=== PATIENT | female | born 1995 | race African-American/Black ===

== ENCOUNTER 2016-10-01 08:22 | Emergency (ER) | payer OTHER ==
[~2016-10-01] VITALS: Ht 160 cm; Wt 54.4 kg
[~2016-10-01 08:22] MED LIST: METR500T PO; ONDA4TAB12 PO; SULF1TAB23 PO
[2016-10-01] MEDS ORDERED: FAMOTIDINE 20 MG TABLET. PO ONE (08:30)
[2016-10-01] MEDS ORDERED: EPINEPHrine SYRINGE 1 MG/10 ML SYRINGE IM ONE (08:30)
[2016-10-01] MEDS ORDERED: DEXAMETHASONE SOD PHOS 20 MG/5 ML VIAL. IV ONE (08:30)
[2016-10-01] MEDS ORDERED: diphenhydrAMINE 50 MG/ML VIAL IVP ONE (08:30)
[2016-10-01] MEDS ORDERED: EPINEPHrine 1 MG/ML VIAL ONE (08:49)
--- NOTE | 2016-10-01 08:52 | PHYS DOC ---
Past Medical History Past Medical History: No Pertinent History, Other Additional Past Medical Histor: POOR ETOH TOLERANCE Past Surgical History: No Surgical History Additional Information: 4 cigarettes daily Alcohol Use: Rarely Drug Use: Marijuana Adult General Chief Complaint Chief Complaint: ALLERGIC REACTION HPI HPI Patient is a 21 year old female presenting to the emergency department for evaluation of diffuse hives that started shortly after eating a banana this morning. Says that she feels short of breath and itchy all over. Patient does not have any obvious swelling to her throat or lips. She says that she has ate a banana before in the past but it has been a very long time. She is allergic to strawberries but denies eating any of those. She is in no obvious distress but looks quite uncomfortable that she has diffuse hives including her face chest back abdomen and upper extremities. Review of Systems Review of Systems Constitutional: Denies fever or chills [] Respiratory: Denies cough or shortness of breath [] Cardiovascular: No additional information not addressed in HPI [] GI: Denies abdominal pain, nausea, vomiting, bloody stools or diarrhea [] : Denies dysuria or hematuria [] Musculoskeletal: Denies back pain or joint pain [] Integument: + rash and skin lesions [] Neurologic: Denies headache, focal weakness or sensory changes [] Current Medications Current Medications Current Medications Medications (Trade) Dose Ordered Sig/Syed Start Time Stop Time Status Last Admin Dose Admin Dexamethasone Sodium Phosphate (Decadron) 10 mg 1X ONCE 10/01/16 08:30 10/01/16 08:34 DC 10/01/16 08:54 10 MG Diphenhydramine HCl (Benadryl) 50 mg 1X ONCE 10/01/16 08:30 10/01/16 08:34 DC 10/01/16 08:56 50 MG Epinephrine HCl (Adrenalin) 1 mg STK-MED ONCE 10/01/16 08:49 10/01/16 08:50 DC Epinephrine HCl (Epinephrine Syringe) 0.3 mg 1X ONCE 10/01/16 08:30 10/01/16 08:34 DC Famotidine (Pepcid) 20 mg 1X ONCE 10/01/16 08:30 10/01/16 08:34 DC 10/01/16 08:48 20 MG Allergies Allergies Allergies Coded Allergies Type Severity Reaction Last Updated Verified strawberry Allergy Intermediate throat itches 10/01/16 Yes Physical Exam Physical Exam Constitutional: Well developed, well nourished, no acute distress, non-toxic appearance. [] HENT: Normocephalic, atraumatic, bilateral external ears normal, oropharynx moist, no oral exudates, nose normal. [] Eyes: PERRLA, EOMI, conjunctiva normal, no discharge. [] Neck: Normal range of motion, no tenderness, supple, no stridor. [] Cardiovascular:Heart rate regular rhythm, no murmur [] Lungs & Thorax: Bilateral breath sounds clear to auscultation [] Abdomen: Bowel sounds normal, soft, no tenderness, no masses, no pulsatile masses. [] Skin: Diffuse hives on face chest abdomen back arms. Back: No tenderness, no CVA tenderness. [] Extremities: No tenderness, no cyanosis, no clubbing, ROM intact, no edema. [] Neurologic: Alert and oriented X 3, normal motor function, normal sensory function, no focal deficits noted. [] Current Patient Data Vital Signs Vital Signs Date Time Temp Pulse Resp B/P (MAP) Pulse Ox O2 Delivery O2 Flow Rate FiO2 10/01/16 09:36 77 20 109/76 (87) 100 Room Air 10/01/16 08:29 97.9 97.9 EKG EKG [] Radiology/Procedures Radiology/Procedures [] Course & Med Decision Making Course & Med Decision Making Patient with diffuse hives but no airway issues and her vital signs are normal except for the tachycardia due to anxiety. She was given epinephrine Decadron and Benadryl and Pepcid and her rash vastly improved and her vital signs returned to normal including her heart rate. Patient was to avoid eating bananas and she was prescribed epinephrine pens and instructed on how to use them and when to use them. She was told to follow with an rail technician and come back to the ER sooner with any worsening rash or shortness of breath or other general concerns. Patient aware and agreeable with plan for discharge and verbalized understanding of the above instructions. Dragon Disclaimer Dragon Disclaimer This electronic medical record was generated, in whole or in part, using a voice recognition dictation system. Departure Departure Impression: Primary Impression: Allergic reaction Disposition: 01 HOME, SELF-CARE Condition: GOOD Referrals: NO PCP (PCP) Patient Instructions: Food Allergy and Anaphylaxis Additional Instructions: TAKE 25-50MG OF BENADRYL EVERY 4-6 HOURS. USE THE EPINEPHRINE FOR ANAPHYLAXIS. FOLLOW WITH AN FRAME MAKER IN THE NEXT 1-2 WEEKS AND COME BACK TO THE ED SOONER WITH ANY NEW OR WORSENING RASH, DIFFICULTY BREATHING OR OTHER GENERAL CONCERNS. THANK YOU! Scripts Epinephrine (EPINEPHRINE) 0.3 Mg/0.3 Ml Auto.injct 0.3 MG IJ PRN ANAPHYLAXIS, #2 SYR Prov: RICK LONGORIA DO 10/01/16 Problem Qualifiers Primary Impression: Allergic reaction Encounter type: initial encounter Qualified Codes: T78.40XA - Allergy, unspecified, initial encounter RICK LONGORIA DO October 01, 2016 08:52
[2016-10-01] MEDS ORDERED: EPINEPHrine 1 MG/ML VIAL IM ONE (09:00)
[2016-10-01 09:36] VITALS: BP 109/76
[2016-10-01] MEDS ORDERED: EPIN0.3A8 IJ (09:51)
== END 2016-10-01 10:10 | disposition home or self-care (01) ==
LOC: ER 10:08
DX: T78.1XXA Other adverse food reactions, not elsewhere classified, initial encounter (principal); L50.9 Urticaria, unspecified; R00.0 Tachycardia, unspecified; F41.9 Anxiety disorder, unspecified; F17.210 Nicotine dependence, cigarettes, uncomplicated; F12.10 Cannabis abuse, uncomplicated; Z91.018 Allergy to other foods; X58.XXXA Exposure to other specified factors, initial encounter
CPT/HCPCS: 96372; 96374; 96375; 99284; J0171; J1100; J1200

== ENCOUNTER 2016-10-16 09:36 | Emergency (ER) | payer OTHER ==
[~2016-10-16] VITALS: Ht 160 cm; Wt 54.4 kg
[~2016-10-16 09:36] MED LIST changes: +EPIN0.3A8 IJ
[2016-10-16] MEDS ORDERED: ONDANSETRON PF 4 MG/2 ML VIAL. IV ONE (10:00)
[2016-10-16] MEDS ORDERED: KETOROLAC TROMETHAMINE 30 MG/ML INJ. IV ONE (10:00)
[2016-10-16] MEDS ORDERED: IV NORMAL SALINE 1000ML BAG 1,000 ML IV ONE (10:00)
[2016-10-16 10:22] LABS: BASO % 0 % (0-3); EOS % 1 % (0-3); HEMOGLOBIN 14.1 g/dL (12.0-15.5); LYMPH # 1.7 x10^3/uL (1.0-4.8); LYMPH % 12 % (24-48); MEAN CORPUSCULAR HEMOGLOBIN 27 pg (25-35); MEAN CORPUSCULAR HGB CONC 34 g/dL (31-37); MEAN CORPUSCULAR VOLUME 81 fL (79-100); MONO % 3 % (0-9); NEUT % 85 % (31-73); PLATELET COUNT 247 x10^3/uL (140-400); RED BLOOD COUNT 5.17 x10^6/uL (3.50-5.40); RED CELL DISTRIBUTION WIDTH 13.8 % (11.5-14.5); WHITE BLOOD COUNT 13.8 x10^3/uL (4.0-11.0)
[2016-10-16 10:39] LABS: CALCIUM 9.4 mg/dL (8.5-10.1); CREATININE 0.9 mg/dL (0.6-1.0); GFR 93.9; POTASSIUM 3.1 mmol/L (3.5-5.1)
[2016-10-16 10:40] LABS: BILIRUBIN,URINE NEGATIVE (NEG); GLUCOSE,URINE NEGATIVE (NEG); NITRITE,URINE NEGATIVE (NEG); PH,URINE 5.5; PROTEIN,URINE NEGATIVE (NEG-TRACE); UROBILINOGEN,URINE 0.2 mg/dL (0.2 mg/dL)
[2016-10-16 10:44] LABS: ALBUMIN 4.6 g/dL (3.4-5.0); ALBUMIN/GLOBULIN RATIO 1.1 (1.0-1.7); TOTAL BILIRUBIN 0.5 mg/dL (0.2-1.0); TOTAL PROTEIN 8.8 g/dL (6.4-8.2)
[2016-10-16 10:47] LABS: BARBITURATES NEG (NEG); BENZODIAZEPINES NEG (NEG); CANNABINOIDS POS (NEG); COCAINE POS (NEG); METHADONE NEG (NEG); OPIATES NEG (NEG); PHENCYCLIDINE NEG (NEG)
[2016-10-16 10:57] LABS: BACTERIA,URINE 0 /HPF (0-FEW); RBC,URINE 0 /HPF (0-2); SQUAMOUS EPITHELIAL CELL,UR MANY /LPF; WBC,URINE OCC /HPF (0-4)
[2016-10-16 11:15] VITALS: BP 110/71
[2016-10-16] MEDS ORDERED: POTASSIUM CHLORIDE 20 MEQ TABLET.ER. PO ONE (11:15)
[2016-10-16] MEDS ORDERED: PROC10TA57 PO (11:44)
[2016-10-16] MEDS ORDERED: POTA20TA82 PO (11:44)
--- NOTE | 2016-10-16 11:45 | PHYS DOC ---
Past Medical History Past Medical History: Alcoholism, Other Additional Past Medical Histor: POOR ETOH TOLERANCE Past Surgical History: No Surgical History Alcohol Use: Heavy Drug Use: Marijuana Adult General Chief Complaint Chief Complaint: ABDOMINAL PAIN HPI HPI Patient is a 21 year old female with a history of alcoholism who presents today with nausea vomiting and generalized moderate headache that began at 2 AM this morning. Patient states prior to her symptoms she has been drinking. She states she had 3 shots of hard liquor. Patient denies any diarrhea. She states she has generalized abdominal cramping. Denies this being the worst headache in her life. She is actively vomiting in the ED. Review of Systems Review of Systems Constitutional: Denies fever or chills [] Eyes: Denies change in visual acuity, redness, or eye pain [] HENT: Denies nasal congestion or sore throat [] Respiratory: Denies cough or shortness of breath [] Cardiovascular: No additional information not addressed in HPI [] GI: abdominal pain, nausea, vomiting, : Denies dysuria or hematuria [] Musculoskeletal: Denies back pain or joint pain [] Integument: Denies rash or skin lesions [] Neurologic: headache Endocrine: Denies polyuria or polydipsia [] Current Medications Current Medications Current Medications Medications (Trade) Dose Ordered Sig/Syed Start Time Stop Time Status Last Admin Dose Admin Ketorolac Tromethamine (Toradol) 30 mg 1X ONCE 10/16/16 10:00 10/16/16 10:01 DC 10/16/16 10:06 30 MG Ondansetron HCl (Zofran) 4 mg 1X ONCE 10/16/16 10:00 10/16/16 10:01 DC 10/16/16 10:06 4 MG Potassium Chloride (Klor-Con) 40 meq 1X ONCE 10/16/16 11:15 10/16/16 11:16 DC 10/16/16 11:09 40 MEQ Sodium Chloride 1,000 ml @ 1,000 mls/hr 1X ONCE 10/16/16 10:00 10/16/16 10:59 DC 10/16/16 10:07 1,000 MLS/HR Allergies Allergies Allergies Coded Allergies Type Severity Reaction Last Updated Verified strawberry Allergy Intermediate throat itches 10/01/16 Yes Physical Exam Physical Exam Constitutional: Well developed, well nourished, no acute distress, non-toxic appearance. [] HENT: Normocephalic, atraumatic, bilateral external ears normal, oropharynx moist, no oral exudates, nose normal. [] Eyes: PERRLA, EOMI, conjunctiva normal, no discharge. [] Neck: Normal range of motion, no tenderness, supple, no stridor. [] Cardiovascular:Heart rate regular rhythm, no murmur [] Lungs & Thorax: Bilateral breath sounds clear to auscultation [] Abdomen: Bowel sounds normal, soft, no tenderness, no masses, no pulsatile masses. [] Skin: Warm, dry, no erythema, no rash. [] Back: No tenderness, no CVA tenderness. [] Extremities: No tenderness, no cyanosis, no clubbing, ROM intact, no edema. [] Neurologic: Alert and oriented X 3, normal motor function, normal sensory function, no focal deficits noted. [] Psychologic: Affect normal, judgement normal, mood normal. [] Current Patient Data Vital Signs Vital Signs Date Time Temp Pulse Resp B/P (MAP) Pulse Ox O2 Delivery O2 Flow Rate FiO2 10/16/16 09:47 98.7 70 20 105/66 (79) 100 Room Air 98.7 Lab Values Laboratory Tests Test 10/16/16 08:54 10/16/16 09:40 10/16/16 10:15 POC Urine HCG, Qualitative Hcg negative (Negative) Urine Collection Type Unknown Urine Color Yellow Urine Clarity Clear Urine pH 5.5 Urine Specific [place] 1.025 Urine Protein Negative mg/dL (NEG-TRACE) Urine Glucose (UA) Negative mg/dL (NEG) Urine Ketones (Stick) >=80 mg/dL (NEG) Urine Blood Small (NEG) Urine Nitrite Negative (NEG) Urine Bilirubin Negative (NEG) Urine Urobilinogen Dipstick 0.2 mg/dL (0.2 mg/dL) Urine Leukocyte Esterase Negative (NEG) Urine RBC 0 /HPF (0-2) Urine WBC Occ /HPF (0-4) Urine Squamous Epithelial Cells Many /LPF Urine Bacteria 0 /HPF (0-FEW) Urine Mucus Slight /LPF Urine Opiates Screen Neg (NEG) Urine Methadone Screen Neg (NEG) Urine Barbiturates Neg (NEG) Urine Phencyclidine Screen Neg (NEG) Urine Amphetamine/Methamphetamine Pos (NEG) Urine Benzodiazepines Screen Neg (NEG) Urine Cocaine Screen Pos (NEG) Urine Cannabinoids Screen Pos (NEG) Urine Ethyl Alcohol Pos (NEG) White Blood Count 13.8 x10^3/uL (4.0-11.0) H Red Blood Count 5.17 x10^6/uL (3.50-5.40) Hemoglobin 14.1 g/dL (12.0-15.5) Hematocrit 42.0 % (36.0-47.0) Mean Corpuscular Volume 81 fL (79-100) Mean Corpuscular Hemoglobin 27 pg (25-35) Mean Corpuscular Hemoglobin Concent 34 g/dL (31-37) Red Cell Distribution Width 13.8 % (11.5-14.5) Platelet Count 247 x10^3/uL (140-400) Neutrophils (%) (Auto) 85 % (31-73) H Lymphocytes (%) (Auto) 12 % (24-48) L Monocytes (%) (Auto) 3 % (0-9) Eosinophils (%) (Auto) 1 % (0-3) Basophils (%) (Auto) 0 % (0-3) Neutrophils # (Auto) 11.7 x10^3uL (1.8-7.7) H Lymphocytes # (Auto) 1.7 x10^3/uL (1.0-4.8) Monocytes # (Auto) 0.3 x10^3/uL (0.0-1.1) Eosinophils # (Auto) 0.1 x10^3/uL (0.0-0.7) Basophils # (Auto) 0.0 x10^3/uL (0.0-0.2) Sodium Level 140 mmol/L (136-145) Potassium Level 3.1 mmol/L (3.5-5.1) L Chloride Level 101 mmol/L (98-107) Carbon Dioxide Level 20 mmol/L (21-32) L Anion Gap 19 (6-14) H Blood Urea Nitrogen 14 mg/dL (7-20) Creatinine 0.9 mg/dL (0.6-1.0) Estimated GFR (Cockcroft-Gault) 93.9 BUN/Creatinine Ratio 16 (6-20) Glucose Level 88 mg/dL (70-99) Calcium Level 9.4 mg/dL (8.5-10.1) Total Bilirubin 0.5 mg/dL (0.2-1.0) Aspartate Amino Transferase (AST) 27 U/L (15-37) Alanine Aminotransferase (ALT) 36 U/L (14-59) Alkaline Phosphatase 79 U/L (46-116) Total Protein 8.8 g/dL (6.4-8.2) H Albumin 4.6 g/dL (3.4-5.0) Albumin/Globulin Ratio 1.1 (1.0-1.7) Lipase 107 U/L (73-393) Ethyl Alcohol Level 58 mg/dL (0-10) H Laboratory Tests 10/16/16 10:15 Laboratory Tests 10/16/16 10:15 EKG EKG [] Radiology/Procedures Radiology/Procedures [] Course & Med Decision Making Course & Med Decision Making Pertinent Labs and Imaging studies reviewed. (See chart for details) This is a 21-year-old female patient with history of alcoholism who presents today with nausea vomiting generalized headache and generalized abdominal pain after drinking last night. CBC no acute findings, CMP with potassium of 3.1. Patient was given oral potassium drops placement in the ED. Lipase is normal, Drug screen is positive for cocaine, meth, marijuana. Alcohol level 58. Patient was given 1 L of IV fluid Toradol and Zofran. She states she is feeling better. She was discharged with education on alcoholism and drug abuse. She was encouraged to consider getting help for both. Dragon Disclaimer Dragon Disclaimer This electronic medical record was generated, in whole or in part, using a voice recognition dictation system. Departure Departure Impression: Primary Impression: Alcohol intoxication Additional Impressions: Drug abuse ETOH abuse Abdominal pain, generalized Hangover without complication Hypokalemia Disposition: 01 HOME, SELF-CARE Condition: STABLE Referrals: NO PCP (PCP) Please consider getting help at [facility] for drug abuse and alcohol abuse Patient Instructions: Alcohol Intoxication, Drug Abuse, FAQs, Hypokalemia-Brief Additional Instructions: You were seen for alcohol intoxication and drug abuse. Your Urine drug screen was positive for cocaine meth and marijuana. Alcohol level was 58. We highly recommend you get help for drug and alcohol abuse. Your potassium level was low. Increase your dietary potassium intake through foods like bananas. Get help for drugs and alcohol use Scripts Prochlorperazine Maleate (Compazine) 10 Mg Tablet 10 MG PO TID Y for NAUSEA, #10 TAB Prov: MUTUNGA,LOGAN INFORMATION MANAGEMENT SPECIALIST 10/16/16 Potassium Chloride (POTASSIUM CHLORIDE) 20 Meq Tablet.er 20 MEQ PO DAILY, #5 TAB.SR Prov: LOGAN MCMANUS APRN 10/16/16 Problem Qualifiers Primary Impression: Alcohol intoxication Complication of substance-induced condition: with unspecified complication Qualified Codes: F10.929 - Alcohol use, unspecified with intoxication, unspecified LOGAN MCMANUS APRN October 16, 2016 11:45
== END 2016-10-16 11:59 | disposition home or self-care (01) ==
LOC: ER 09:36
DX: F10.129 Alcohol abuse with intoxication, unspecified (principal); F12.10 Cannabis abuse, uncomplicated; R10.84 Generalized abdominal pain; E87.6 Hypokalemia; R51 Headache; Z91.018 Allergy to other foods
CPT/HCPCS: 36415; 80053; 80305; 80320; 81001; 81025; 83690; 85027; 96361; 96374; 96375; 99284; J1885; J2405; J7030; G0480; G0481

== ENCOUNTER 2016-11-21 20:57 | Emergency (ER) | payer OTHER ==
[~2016-11-21] VITALS: Ht 154.9 cm; Wt 54.4 kg
[~2016-11-21 20:57] MED LIST changes: +POTA20TA82 PO; +PROC10TA57 PO
--- NOTE | 2016-11-21 21:24 | PHYS DOC ---
Past Medical History Past Medical History: Alcoholism, Other Additional Past Medical Histor: POOR ETOH TOLERANCE Past Surgical History: No Surgical History Alcohol Use: Heavy Drug Use: Marijuana Adult General Chief Complaint Chief Complaint: Palpitations HPI HPI Patient is a 21 year old female who presents with chest pain & palpitations. Patient reports intermittent symptoms for months, most recently for past 2 weeks has had sharp left sided chest pain which is continuous, worse with deep breathing, associated with mild shortness of breath. She also reports she feels her heart racing at times. She denies fevers/chills, cough, nausea, vomiting, diaphoresis, lower extremity pain/swelling. She has never seen a doctor for this problem before. She drinks EtOH daily last drink this AM, occasional tobacco & marijuana, no known PMHx, no known family history of CAD or arrhythmia. Review of Systems Review of Systems Constitutional: Denies fever or chills Eyes: Denies change in visual acuity HENT: Denies nasal congestion or sore throat Respiratory: Denies cough or shortness of breath Cardiovascular: Reports chest pain and palpitations, denies edema GI: Denies abdominal pain, nausea, vomiting, bloody stools or diarrhea Musculoskeletal: Denies back pain or joint pain Integument: Denies rash or skin lesions Neurologic: Denies headache, focal weakness or sensory changes Current Medications Current Medications Current Medications Medications (Trade) Dose Ordered Sig/Syed Start Time Stop Time Status Last Admin Dose Admin Ketorolac Tromethamine (Toradol) 30 mg 1X ONCE 11/21/16 21:30 11/21/16 21:31 DC 11/21/16 21:33 30 MG Sodium Chloride 1,000 ml @ 1,000 mls/hr 1X ONCE 11/21/16 21:30 11/21/16 22:29 11/21/16 21:33 1,000 MLS/HR Allergies Allergies Allergies Coded Allergies Type Severity Reaction Last Updated Verified banana Allergy Severe Swelling, HIVES 11/21/16 Yes strawberry Allergy Intermediate throat itches 10/01/16 Yes Physical Exam Physical Exam Constitutional: Well developed, well nourished, no acute distress, non-toxic appearance. HENT: Normocephalic, atraumatic, bilateral external ears normal, oropharynx moist, nose normal. Eyes: conjunctiva normal, no discharge. Neck: supple, no stridor. Cardiovascular: RRR, no murmurs, no edema. Lungs & Thorax: LCTAB, no wheezing, no respiratory distress. Reproducible tenderness with palpation over left anterior chest wall. Abdomen: soft, nontender, nondistended. Skin: Warm, dry, no erythema, no rash. Back: No tenderness. Extremities: No tenderness, no edema. No calf tenderness or swelling Neurologic: Alert and oriented X 3, no focal deficits noted. Psychologic: Affect normal, judgement normal, mood normal. Current Patient Data Vital Signs Vital Signs Date Time Temp Pulse Resp B/P (MAP) Pulse Ox O2 Delivery O2 Flow Rate FiO2 11/21/16 21:22 98.3 84 18 119/57 (77) 100 Room Air 98.3 Lab Values Laboratory Tests Test 11/21/16 21:15 11/21/16 21:19 11/21/16 22:08 POC Urine HCG, Qualitative Hcg negative (Negative) White Blood Count 9.4 x10^3/uL (4.0-11.0) Red Blood Count 4.77 x10^6/uL (3.50-5.40) Hemoglobin 13.0 g/dL (12.0-15.5) Hematocrit 40.2 % (36.0-47.0) Mean Corpuscular Volume 84 fL (79-100) Mean Corpuscular Hemoglobin 27 pg (25-35) Mean Corpuscular Hemoglobin Concent 32 g/dL (31-37) Red Cell Distribution Width 14.3 % (11.5-14.5) Platelet Count 254 x10^3/uL (140-400) Neutrophils (%) (Auto) 46 % (31-73) Lymphocytes (%) (Auto) 43 % (24-48) Monocytes (%) (Auto) 5 % (0-9) Eosinophils (%) (Auto) 5 % (0-3) H Basophils (%) (Auto) 1 % (0-3) Neutrophils # (Auto) 4.3 x10^3uL (1.8-7.7) Lymphocytes # (Auto) 4.0 x10^3/uL (1.0-4.8) Monocytes # (Auto) 0.5 x10^3/uL (0.0-1.1) Eosinophils # (Auto) 0.4 x10^3/uL (0.0-0.7) Basophils # (Auto) 0.1 x10^3/uL (0.0-0.2) Sodium Level 141 mmol/L (136-145) Potassium Level 3.1 mmol/L (3.5-5.1) L Chloride Level 105 mmol/L (98-107) Carbon Dioxide Level 28 mmol/L (21-32) Anion Gap 8 (6-14) Blood Urea Nitrogen 11 mg/dL (7-20) Creatinine 0.8 mg/dL (0.6-1.0) Estimated GFR (Cockcroft-Gault) 107.6 BUN/Creatinine Ratio 14 (6-20) Glucose Level 84 mg/dL (70-99) Calcium Level 8.9 mg/dL (8.5-10.1) Total Bilirubin 0.4 mg/dL (0.2-1.0) Aspartate Amino Transferase (AST) 20 U/L (15-37) Alanine Aminotransferase (ALT) 29 U/L (14-59) Alkaline Phosphatase 62 U/L (46-116) Troponin I Quantitative < 0.017 ng/mL (0.000-0.055) Total Protein 7.2 g/dL (6.4-8.2) Albumin 3.8 g/dL (3.4-5.0) Albumin/Globulin Ratio 1.1 (1.0-1.7) Thyroid Stimulating Hormone (TSH) 1.432 uIU/mL (0.358-3.74) Ethyl Alcohol Level < 10 mg/dL (0-10) Urine Test Negative (NEG) Urine Opiates Screen Neg (NEG) Urine Methadone Screen Neg (NEG) Urine Barbiturates Neg (NEG) Urine Phencyclidine Screen Neg (NEG) Urine Amphetamine/Methamphetamine Pos (NEG) Urine Benzodiazepines Screen Neg (NEG) Urine Cocaine Screen Neg (NEG) Urine Cannabinoids Screen Pos (NEG) Urine Ethyl Alcohol Neg (NEG) Laboratory Tests 11/21/16 21:19 Laboratory Tests 11/21/16 21:19 EKG EKG Interpreted by me: Normal sinus rhythm rate 68, no acute ST or T wave changes, normal intervals, no ectopy. [] Radiology/Procedures Radiology/Procedures patient declined CXR[] Course & Med Decision Making Course & Med Decision Making Pertinent Labs and Imaging studies reviewed. (See chart for details) Patient presents with chest pain & palpitations. Ordered labs, EKG, CXR. EKG unremarkable as above, no arrhythmia or tachycardia/bradycardia on telemetry. She requested to leave before workup was complete because her ride needed to leave. Discussed risks of leaving including worsening condition, undiagnosed condition, possibly . She is A&Ox3 & chooses to leave against medical advice. Recommend follow up with PCP at her earliest convenience, consider seeking help for EtOH detox. [] Dragon Disclaimer Dragon Disclaimer This electronic medical record was generated, in whole or in part, using a voice recognition dictation system. Departure Departure Impression: Primary Impression: Chest pain Additional Impression: Palpitations Disposition: 07 AGAINST MEDICAL ADVICE Condition: STABLE Referrals: NO PCP (PCP) Problem Qualifiers ASHLI PARSON MD Nov 21, 2016 21:24
[2016-11-21 21:27] LABS: BASO # 0.1 x10^3/uL (0.0-0.2); BASO % 1 % (0-3); EOS % 5 % (0-3); HEMATOCRIT 40.2 % (36.0-47.0); LYMPH % 43 % (24-48); MEAN CORPUSCULAR HEMOGLOBIN 27 pg (25-35); MEAN CORPUSCULAR HGB CONC 32 g/dL (31-37); MEAN CORPUSCULAR VOLUME 84 fL (79-100); MONO % 5 % (0-9); NEUT % 46 % (31-73); PLATELET COUNT 254 x10^3/uL (140-400); RED BLOOD COUNT 4.77 x10^6/uL (3.50-5.40); RED CELL DISTRIBUTION WIDTH 14.3 % (11.5-14.5); WHITE BLOOD COUNT 9.4 x10^3/uL (4.0-11.0)
[2016-11-21] MEDS ORDERED: KETOROLAC TROMETHAMINE 30 MG/ML INJ. IV ONE (21:30)
[2016-11-21] MEDS ORDERED: IV NORMAL SALINE 1000ML BAG 1,000 ML IV ONE (21:30)
[2016-11-21 21:40] LABS: CALCIUM 8.9 mg/dL (8.5-10.1); CREATININE 0.8 mg/dL (0.6-1.0); GFR 107.6; POTASSIUM 3.1 mmol/L (3.5-5.1)
[2016-11-21 21:47] LABS: ALBUMIN 3.8 g/dL (3.4-5.0); ALBUMIN/GLOBULIN RATIO 1.1 (1.0-1.7); TOTAL BILIRUBIN 0.4 mg/dL (0.2-1.0); TOTAL PROTEIN 7.2 g/dL (6.4-8.2)
[2016-11-21 22:09] VITALS: BP 117/67
[2016-11-21 22:20] LABS: NEG OBC UR NEG; POS OBC UR POS
[2016-11-21 22:23] LABS: BARBITURATES NEG (NEG); BENZODIAZEPINES NEG (NEG); CANNABINOIDS POS (NEG); COCAINE NEG (NEG); METHADONE NEG (NEG); OPIATES NEG (NEG); PHENCYCLIDINE NEG (NEG)
--- NOTE | 2016-11-22 06:47 | EKG ---
[facility] [address] [place] [address] Test Date: 2016-11-21 Test Time: 21:11:02 Pat Name: CHRISSY QUINTANILLA Department: Room: Gender: F Sterile Supervisor: : 1995 Requested By: ASHLI PARSNO Order Number: [id number] Reading MD: Measurements Intervals [place] Rate: 68 P: 26 NE: 212 QRS: -23 QRSD: 76 T: 6 QT: 378 QTc: 402 Interpretive Statements SINUS RHYTHM LEFTWARD AXIS OTHERWISE NORMAL ECG RI6.01 No previous ECG available for comparison
== END 2016-11-21 22:25 | disposition left against medical advice (07) ==
LOC: ER 20:57
DX: R00.2 Palpitations (principal); R07.9 Chest pain, unspecified; R06.02 Shortness of breath; F12.10 Cannabis abuse, uncomplicated; Z91.018 Allergy to other foods
CPT/HCPCS: 36415; 80053; 80305; 80320; 81025; 84443; 84484; 85027; 93005; 96361; 96374; 99285; J1885; J7030; G0480; G0481

== ENCOUNTER 2017-12-15 11:17 | Emergency (ER) | payer SELFPAY, OTHER ==
[2017-12-15 11:37] LABS: URINE HCG POC HCG NEGATIVE (Negative)
[2017-12-15 11:52] LABS: ADD MAN DIFF? NO
[2017-12-15 11:56] LABS: BASO # 0.1 x10^3/uL (0.0-0.2); BASO % 1 % (0-3); EOS # 0.3 x10^3/uL (0.0-0.7); EOS % 3 % (0-3); HEMATOCRIT 39.3 % (36.0-47.0); HEMOGLOBIN 13.3 g/dL (12.0-15.5); LYMPH # 2.7 x10^3/uL (1.0-4.8); LYMPH % 35 % (24-48); MEAN CORPUSCULAR HEMOGLOBIN 28 pg (25-35); MEAN CORPUSCULAR HGB CONC 34 g/dL (31-37); MEAN CORPUSCULAR VOLUME 83 fL (79-100); MONO # 0.5 x10^3/uL (0.0-1.1); MONO % 6 % (0-9); NEUT # 4.2 x10^3uL (1.8-7.7); NEUT % 55 % (31-73); PLATELET COUNT 298 x10^3/uL (140-400); RED BLOOD COUNT 4.77 x10^6/uL (3.50-5.40); RED CELL DISTRIBUTION WIDTH 14.5 % (11.5-14.5); WHITE BLOOD COUNT 7.8 x10^3/uL (4.0-11.0)
[2017-12-15 12:04] LABS: ANION GAP 7 (6-14); BLOOD UREA NITROGEN 11 mg/dL (7-20); BUN/CREATININE RATIO 14 (6-20); CARBON DIOXIDE 26 mmol/L (21-32); CHLORIDE 104 mmol/L (98-107); CREATININE 0.8 mg/dL (0.6-1.0); GFR 106.6; GLUCOSE 98 mg/dL (70-99); POTASSIUM 3.7 mmol/L (3.5-5.1); SODIUM 137 mmol/L (136-145)
[2017-12-15 12:11] LABS: ALBUMIN/GLOBULIN RATIO 1.1 (1.0-1.7); ALK PHOS 65 U/L (46-116); ALT (SGPT) 46 U/L (14-59); AST (SGOT) 30 U/L (15-37); TOTAL BILIRUBIN 0.4 mg/dL (0.2-1.0); TOTAL PROTEIN 7.7 g/dL (6.4-8.2)
[2017-12-15 12:12] LABS: TROPONINI < 0.017 ng/mL (0.000-0.055)
[2017-12-15] MEDS ORDERED: CONTRAST GIVEN. MC (12:15)
[2017-12-15] MEDS: IOHEXOL 300 MG/ML 100ML VIAL. IV (12:17)
[2017-12-15 12:18] LABS: D-DIMER < 0.27 ug/mlFEU (0.00-0.50)
[2017-12-15] MEDS: KETOROLAC 30 MG/ML INJ. IV (13:33)
[2017-12-15] MEDS: traMADol 50 MG TABLET PO (14:28)
== END 2017-12-15 14:35 | disposition home or self-care (01) ==
LOC: ER 11:17
DX: R07.89 Other chest pain (principal); R06.00 Dyspnea, unspecified; E04.9 Nontoxic goiter, unspecified; Z91.018 Allergy to other foods
CPT/HCPCS: 36415; 71275; 80053; 81025; 84484; 84702; 85025; 85379; 93005; 96374; 99285-25; J1885; Q9967

== ENCOUNTER 2018-01-11 18:18 | Emergency (ER) | payer OTHER ==
[~2018-01-11] VITALS: Ht 162.6 cm; Wt 54.4 kg
[~2018-01-11 18:18] MED LIST changes: +TRAM50TA PO
[2018-01-11 18:36] VITALS: BP 104/56
[2018-01-11] MEDS ORDERED: ORPHENADRINE CITRATE 60 MG/2 ML VIAL. IM ONE (19:30)
[2018-01-11] MEDS ORDERED: KETOROLAC 30 MG/ML VIAL. IM ONE (19:30)
[2018-01-11] MEDS ORDERED: NAPR-514 PO (20:15)
[2018-01-11] MEDS ORDERED: CYCL10TA2 PO (20:15)
--- NOTE | 2018-01-11 20:16 | PHYS DOC ---
Past Medical History Past Medical History: Alcoholism, Other Additional Past Medical Histor: BLOOD CLOTS Past Surgical History: Other Additional Past Surgical Histo: PLASTIC SX TO FACE Alcohol Use: Heavy Additional Information: HAD A SHOT OF LIQUIOR TODAY Drug Use: Marijuana Adult General Chief Complaint Chief Complaint: LOWER BACK PAIN OR INJURY HPI HPI Patient is a 22 year old -[place] female who presents to emergency Department today with complaints of low back pain after wrestling around with her fianc this evening. She denies any weakness, numbness, tingling, or loss of sensation in the lower extremities. She states that the pain does not travel to her buttocks or down her legs. Currently she rates pain as a 10 out of 10 on the pain scale. She reports that she had a PE 2 months ago and is currently taking Eliquis for treatment of that condition, she denies any shortness of breath or chest pain. She denies any surgical history. Review of Systems Review of Systems Constitutional: Denies fever or chills [] Musculoskeletal: Denies joint pain; reports low back pain- denies any saddle anesthesia, or loss of bowel or bladder control. [] Integument: Denies rash or skin lesions [] Neurologic: Denies headache, focal weakness or sensory changes [] All other systems were reviewed and found to be within normal limits, except as documented in this note. Current Medications Current Medications Current Medications Medications (Trade) Dose Ordered Sig/Syed Start Time Stop Time Status Last Admin Dose Admin Ketorolac Tromethamine (Toradol 30mg Vial) 30 mg 1X ONCE 01/11/18 19:30 01/11/18 19:31 DC 01/11/18 19:31 30 MG Orphenadrine Citrate (Norflex) 60 mg 1X ONCE 01/11/18 19:30 01/11/18 19:31 DC 01/11/18 19:30 60 MG Allergies Allergies Allergies Coded Allergies Type Severity Reaction Last Updated Verified banana Allergy Severe Swelling, HIVES 11/21/16 Yes strawberry Allergy Intermediate throat itches 10/01/16 Yes Physical Exam Physical Exam Constitutional: Well developed, well nourished, no acute distress, non-toxic appearance. [] HENT: Normocephalic, atraumatic, bilateral external ears normal, nose normal. [ ] Eyes: PERRLA, conjunctiva normal, no discharge. [] Neck: Normal range of motion, no tenderness, supple, no stridor. [] Skin: Warm, dry, no erythema, no rash. [] Back: No tenderness, no CVA tenderness. [] Extremities: No tenderness, no cyanosis, no clubbing, ROM intact, no edema. [] Neurologic: Alert and oriented X 3, normal motor function, normal sensory function, no focal deficits noted. [] Psychologic: Affect normal, judgement normal, mood normal. [] Current Patient Data Vital Signs Vital Signs Date Time Temp Pulse Resp B/P (MAP) Pulse Ox O2 Delivery O2 Flow Rate FiO2 01/11/18 18:36 98.3 64 18 104/56 (72) 98 Room Air 98.3 EKG EKG [] Radiology/Procedures Radiology/Procedures [] Course & Med Decision Making Course & Med Decision Making Pertinent Labs and Imaging studies reviewed. (See chart for details) Patient is a 22-year-old female who presented to the emergency room with complaints of right low back pain after wrestling around with her boyfriend. Vital signs are stable. Patient was given a 60 mg shot of orphenadrine, and 30 mg shot of Toradol, reported some relief of pain with these medications. Patient will be prescribed Flexeril and naproxen for home use.Patient verbalized an understanding of home care, medications, follow-up, and return to ED instructions and was in agreement with the plan of care. [] Dragon Disclaimer Dragon Disclaimer This electronic medical record was generated, in whole or in part, using a voice recognition dictation system. Departure Departure Impression: Primary Impression: Right lumbar pain Disposition: HOME, SELF-CARE Condition: STABLE Referrals: NO PCP (PCP) Patient Instructions: Lumbosacral Strain Additional Instructions: Fill prescriptions and use as directed. activity as tolerated. follow up with your doctor in 1-2 days. Return to the ER if your symptoms worsen. Scripts Cyclobenzaprine Hcl (CYCLOBENZAPRINE HCL) 10 Mg Tablet 10 MG PO TID for 7 Days, #21 TAB 0 Refills Prov: ARELY RAMIREZ APRN 01/11/18 Naproxen (NAPROXEN) 500 Mg Tablet 1 TAB PO BID for 10 Days, #20 TAB 0 Refills Prov: ARELY RAMIREZ APRN 01/11/18 Problem Qualifiers Primary Impression: Right lumbar pain Chronicity: acute Sciatica presence: without sciatica Qualified Codes: M54.5 - Low back pain ARELY RAMIREZ FUND MANAGER Jan 11, 2018 20:16
== END 2018-01-11 20:27 | disposition home or self-care (01) ==
LOC: ER 18:18
DX: M54.5 Low back pain (principal); F10.20 Alcohol dependence, uncomplicated; Y90.9 Presence of alcohol in blood, level not specified; Z91.018 Allergy to other foods
CPT/HCPCS: 96372; 99284; J1885; J2360

== ENCOUNTER 2018-02-20 11:11 | Emergency (ER) | payer OTHER ==
[~2018-02-20] VITALS: Ht 162.6 cm; Wt 54.4 kg
[~2018-02-20 11:11] MED LIST changes: +CYCL10TA2 PO; +NAPR-514 PO
[2018-02-20 11:18] VITALS: BP 104/64
[2018-02-20 12:27] LABS: BILIRUBIN,URINE NEGATIVE (NEG); CLARITY,URINE CLEAR; COLOR,URINE YELLOW; NITRITE,URINE NEGATIVE (NEG); PH,URINE 6.5; PROTEIN,URINE NEGATIVE (NEG-TRACE)
[2018-02-20 12:47] LABS: SQUAMOUS EPITHELIAL CELL,UR FEW /LPF
[2018-02-20 12:48] LABS: RBC,URINE OCC /HPF (0-2)
[2018-02-20 12:49] LABS: BACTERIA,URINE FEW /HPF (0-FEW)
--- NOTE | 2018-02-20 14:24 | RAD ---
Obstetrical ultrasound, 02/20/2018: HISTORY: Pain, Transabdominal scans were obtained. The uterus is anteverted. It contains a single gestational sac. The gestational sac contains a pole measuring 3 mm. This suggests a gestational age of 5 weeks and 6 days yielding a sonographic EDC of 10/17/2018. cardiac activity is present with a heart rate of 114 bpm. No subchorionic hemorrhage is evident. The ovaries are of normal size. The left ovary contains a 2.2 cm cyst, probably a corpus luteum cyst. Blood flow is present in both ovaries. No adnexal mass is seen. No free fluid is evident in the pelvis. IMPRESSION: 1. Single viable intrauterine fetus of approximately 6 weeks gestational age. 2. Small left corpus luteum cyst. Electronically signed by: Fabiano Guzman MD (02/20/2018 2:20 PM) [facility]
[2018-02-20] MEDS ORDERED: CEPH500T PO (14:43)
--- NOTE | 2018-02-20 14:44 | PHYS DOC ---
Past Medical History Past Medical History: Alcoholism, Other Additional Past Medical Histor: PE, Gastritis r/t ETOH Past Surgical History: Other Additional Past Surgical Histo: PLASTIC SX TO FACE Alcohol Use: Heavy Drug Use: Marijuana Adult General Chief Complaint Chief Complaint: ABDOMINAL PAIN HPI HPI Patient is a 23 year old AA female presents to the ER with complaints of lower abdominal pain for the last 3 days. She denies any nausea, vomiting, or diarrhea in the last 24 hours. Reports drinking a large amount of alcohol last weekend and on [birth year] for her birthday. She is unsure of when her LMP was, states she thinks it was on 12/23/17. Currently she rates the discomfort as a 5 out of 10 on the pain scale. She denies any dysuria, increased urinary frequency, back pain, vaginal discharge, vaginal bleeding, or vaginal itching. Review of Systems Review of Systems Constitutional: Denies fever or chills [] HENT: Denies nasal congestion or sore throat [] Respiratory: Denies cough or shortness of breath [] Cardiovascular: No additional information not addressed in HPI [] GI: Denies abdominal pain, nausea, vomiting, bloody stools or diarrhea [] : Denies irregular vaginal discharge, vaginal bleeding, increased urinary frequency, dysuria or hematuria [] Musculoskeletal: Denies back pain or joint pain [] Integument: Denies rash or skin lesions [] Neurologic: Denies headache, focal weakness or sensory changes [] All other systems were reviewed and found to be within normal limits, except as documented in this note. Allergies Allergies Allergies Coded Allergies Type Severity Reaction Last Updated Verified banana Allergy Severe Swelling, HIVES 11/21/16 Yes strawberry Allergy Intermediate throat itches 10/01/16 Yes Physical Exam Physical Exam Constitutional: Well developed, well nourished, no acute distress, non-toxic appearance. [] HENT: Normocephalic, atraumatic, bilateral external ears normal, oropharynx moist, no oral exudates, nose normal. [] Eyes: PERRLA, conjunctiva normal, no discharge. [] Neck: Normal range of motion, no tenderness, supple, no stridor. [] Cardiovascular:Heart rate regular rhythm, no murmur [] Lungs & Thorax: Bilateral breath sounds clear to auscultation [] Abdomen: Bowel sounds normal, soft, no tenderness, no masses, no pulsatile masses. [] Skin: Warm, dry, no erythema, no rash. [] Back: no CVA tenderness. [] Extremities: No cyanosis, no clubbing, ROM intact, no edema. [] Neurologic: Alert and oriented X 3, normal motor function, normal sensory function, no focal deficits noted. [] Psychologic: Affect normal, judgement normal, mood normal. [] Current Patient Data Vital Signs Vital Signs Date Time Temp Pulse Resp B/P (MAP) Pulse Ox O2 Delivery O2 Flow Rate FiO2 02/20/18 11:18 98.3 65 16 104/64 (77) 100 Room Air 98.3 Lab Values Laboratory Tests Test 02/20/18 11:20 02/20/18 11:29 02/20/18 11:30 Urine Collection Type Unknown Urine Color Yellow Urine Clarity Clear Urine pH 6.5 Urine Specific [place] 1.025 Urine Protein Negative mg/dL (NEG-TRACE) Urine Glucose (UA) Negative mg/dL (NEG) Urine Ketones (Stick) >=80 mg/dL (NEG) Urine Blood Negative (NEG) Urine Nitrite Negative (NEG) Urine Bilirubin Negative (NEG) Urine Urobilinogen Dipstick 1.0 mg/dL (0.2 mg/dL) Urine Leukocyte Esterase Moderate (NEG) Urine RBC Occ /HPF (0-2) Urine WBC 5-10 /HPF (0-4) Urine Squamous Epithelial Cells Few /LPF Urine Bacteria Few /HPF (0-FEW) Urine Mucus Slight /LPF POC Urine HCG, Qualitative Hcg positive (Negative) Maternal Serum HCG Beta Subunit 13110 mIU/mL (0-5) H Microbiology 02/20/18 Urine Culture - Final, Complete 02/20/18 Urine Culture Result 1 (BRETT) - Final, Complete EKG EKG [] Radiology/Procedures Radiology/Procedures [] Course & Med Decision Making Course & Med Decision Making Pertinent Labs and Imaging studies reviewed. (See chart for details) Dx: UTI, Pt was informed of positive and urinary tract infection. Prescription for keflex was written, increase fluids, follow up with PCP or OBGyn. Patient verbalized an understanding of home care, medications, follow-up, and return to ED instructions and was in agreement with the plan of care. [] Dragon Disclaimer Dragon Disclaimer This electronic medical record was generated, in whole or in part, using a voice recognition dictation system. Departure Departure Impression: Primary Impression: Urinary tract infection affecting care of mother in first trimester, antepartum Additional Impression: Disposition: 01 HOME, SELF-CARE Condition: STABLE Referrals: NO PCP (PCP) Patient Instructions: - First Trimester, [id number], Urinary Tract Infection, [id number] Additional Instructions: Fill prescription and use as directed. Increase clear fluids. Follow up with primary care doctor next week Return to the ER if your symptoms worsen. Scripts Cephalexin (CEPHALEXIN) 500 Mg Tablet 1 TAB PO QID, #40 TAB Prov: ARELY RAMIREZ APRN 02/20/18 Problem Qualifiers Additional Impression: Weeks of gestation: less than 8 weeks Qualified Codes: Z3A.01 - Less than 8 weeks gestation of ARELY RAMIREZ APRN Feb 20, 2018 14:44
== END 2018-02-20 14:21 | disposition left against medical advice (07) ==
LOC: ER 11:11
DX: O23.41 Unspecified infection of urinary tract in pregnancy, first trimester (principal); O99.311 Alcohol use complicating pregnancy, first trimester; Y90.9 Presence of alcohol in blood, level not specified; Z91.018 Allergy to other foods; Z3A.08 8 weeks gestation of pregnancy
CPT/HCPCS: 36415; 76801; 81001; 81025; 84702; 87086; 99285-25

== ENCOUNTER 2018-05-08 05:32 | Emergency (ER) | payer OTHER ==
[~2018-05-08] VITALS: Ht 162.6 cm; Wt 57.2 kg
[~2018-05-08 05:32] MED LIST changes: +CEPH500T PO
--- NOTE | 2018-05-08 06:33 | PHYS DOC ---
Past Medical History Past Medical History: Alcoholism, Other Additional Past Medical Histor: PE, Gastritis r/t ETOH Past Surgical History: Other Additional Past Surgical Histo: PLASTIC SX TO FACE Alcohol Use: Heavy Drug Use: Marijuana Adult General Chief Complaint Chief Complaint: VAGINAL BLEEDING HPI HPI Is a 23-year-old female who presents with complaint of pelvic pain and vaginal bleeding that started this morning. Patient states that when she got up this morning she saw blood that she feels was enough to fill a pad. She indicates that she is approximately 16 weeks . She denies any nausea or vomiting. She also denies any back pain. She reports the pain in her pelvis is moderate proximal this cramping. Review of Systems Review of Systems Constitutional: Denies fever or chills [] Respiratory: Denies cough or shortness of breath [] Cardiovascular: No additional information not addressed in HPI [] GI: Complains of lower abdominal/pelvic pain without vomiting or diarrhea [] : Positive vaginal bleeding[] Musculoskeletal: Denies back pain or joint pain [] All other systems were reviewed and found to be within normal limits, except as documented in this note. Current Medications Current Medications Current Medications Medications (Trade) Dose Ordered Sig/Syed Start Time Stop Time Status Last Admin Dose Admin Lorazepam (Ativan) 2 mg STK-MED ONCE 05/08/18 05:44 05/08/18 05:45 DC Allergies Allergies Allergies Coded Allergies Type Severity Reaction Last Updated Verified banana Allergy Severe Swelling, HIVES 11/21/16 Yes strawberry Allergy Intermediate throat itches 10/01/16 Yes Physical Exam Physical Exam Constitutional: Well developed, well nourished, no acute distress, non-toxic appearance. [] HENT: Normocephalic, atraumatic, bilateral external ears normal, oropharynx moist, no oral exudates, nose normal. [] Eyes: PERRLA, EOMI, conjunctiva normal, no discharge. [] Neck: Normal range of motion, no tenderness, supple, no stridor. [] Cardiovascular: Regular rate and rhythm, no murmur [] Lungs & Thorax: Bilateral breath sounds clear to auscultation [] Abdomen: Bowel sounds normal, gravid, soft, with lower abdominal tenderness. [] Skin: Warm, dry, no erythema, no rash. [] Extremities: No tenderness, no cyanosis, no clubbing, ROM intact, no edema. [] Neurologic: Alert and oriented X 3, normal motor function, normal sensory function, no focal deficits noted. [] Current Patient Data Vital Signs Vital Signs Date Time Temp Pulse Resp B/P (MAP) Pulse Ox O2 Delivery O2 Flow Rate FiO2 05/08/18 05:35 98.4 74 16 101/53 (69) 100 Room Air 98.4 Lab Values Laboratory Tests Test 05/08/18 05:53 05/08/18 05:55 White Blood Count 8.0 x10^3/uL (4.0-11.0) Red Blood Count 3.86 x10^6/uL (3.50-5.40) Hemoglobin 10.9 g/dL (12.0-15.5) L Hematocrit 31.5 % (36.0-47.0) L Mean Corpuscular Volume 82 fL (79-100) Mean Corpuscular Hemoglobin 28 pg (25-35) Mean Corpuscular Hemoglobin Concent 35 g/dL (31-37) Red Cell Distribution Width 13.7 % (11.5-14.5) Platelet Count 227 x10^3/uL (140-400) Neutrophils (%) (Auto) 53 % (31-73) Lymphocytes (%) (Auto) 38 % (24-48) Monocytes (%) (Auto) 5 % (0-9) Eosinophils (%) (Auto) 4 % (0-3) H Basophils (%) (Auto) 0 % (0-3) Neutrophils # (Auto) 4.2 x10^3uL (1.8-7.7) Lymphocytes # (Auto) 3.1 x10^3/uL (1.0-4.8) Monocytes # (Auto) 0.4 x10^3/uL (0.0-1.1) Eosinophils # (Auto) 0.3 x10^3/uL (0.0-0.7) Basophils # (Auto) 0.0 x10^3/uL (0.0-0.2) Maternal Serum HCG Beta Subunit 62049 mIU/mL (0-5) H Sodium Level 138 mmol/L (136-145) Potassium Level 3.6 mmol/L (3.5-5.1) Chloride Level 103 mmol/L (98-107) Carbon Dioxide Level 23 mmol/L (21-32) Anion Gap 12 (6-14) Blood Urea Nitrogen 11 mg/dL (7-20) Creatinine 0.5 mg/dL (0.6-1.0) L Estimated GFR (Cockcroft-Gault) 181.9 BUN/Creatinine Ratio 22 (6-20) H Glucose Level 78 mg/dL (70-99) Calcium Level 8.7 mg/dL (8.5-10.1) Total Bilirubin 0.2 mg/dL (0.2-1.0) Aspartate Amino Transferase (AST) 17 U/L (15-37) Alanine Aminotransferase (ALT) 26 U/L (14-59) Alkaline Phosphatase 34 U/L (46-116) L Total Protein 6.5 g/dL (6.4-8.2) Albumin 3.1 g/dL (3.4-5.0) L Albumin/Globulin Ratio 0.9 (1.0-1.7) L Urine Collection Type Unknown Urine Color Yellow Urine Clarity Clear Urine pH 6.5 Urine Specific [place] 1.025 Urine Protein Negative mg/dL (NEG-TRACE) Urine Glucose (UA) Negative mg/dL (NEG) Urine Ketones (Stick) Negative mg/dL (NEG) Urine Blood Negative (NEG) Urine Nitrite Negative (NEG) Urine Bilirubin Negative (NEG) Urine Urobilinogen Dipstick 0.2 mg/dL (0.2 mg/dL) Urine Leukocyte Esterase Negative (NEG) Urine RBC 0 /HPF (0-2) Urine WBC Occ /HPF (0-4) Urine Squamous Epithelial Cells Mod /LPF Urine Bacteria Few /HPF (0-FEW) Urine Mucus Mod /LPF Laboratory Tests 05/08/18 05:53 Laboratory Tests 05/08/18 05:53 EKG EKG [] Radiology/Procedures Radiology/Procedures [] Impressions: Ultrasound of pelvis demonstrates a single live intrauterine with positive heart tones of 144. Estimated gestational age 17 weeks 4 days. Course & Med Decision Making Course & Med Decision Making Pertinent Labs and Imaging studies reviewed. (See chart for details) [] Dragon Disclaimer Dragon Disclaimer This electronic medical record was generated, in whole or in part, using a voice recognition dictation system. Departure Departure Impression: Primary Impression: Additional Impression: Vaginal bleeding during Disposition: HOME, SELF-CARE Condition: STABLE Referrals: NO PCP (PCP) Patient Instructions: , Vaginal Bleeding During , Second Trimester Additional Instructions: Call to schedule follow-up appointment with your [employer] G[employer] K[employer]PER in the next 2-3 days. Problem Qualifiers Primary Impression: Weeks of gestation: 17 weeks Qualified Codes: Z3A.17 - 17 weeks gestation of MARSHALL CHRISTY Jr. DO May 08, 2018 06:33
[2018-05-08 07:38] LABS: BASO % 0 % (0-3); EOS # 0.3 x10^3/uL (0.0-0.7); EOS % 4 % (0-3); HEMATOCRIT 31.5 % (36.0-47.0); HEMOGLOBIN 10.9 g/dL (12.0-15.5); LYMPH # 3.1 x10^3/uL (1.0-4.8); LYMPH % 38 % (24-48); MEAN CORPUSCULAR HEMOGLOBIN 28 pg (25-35); MEAN CORPUSCULAR HGB CONC 35 g/dL (31-37); MEAN CORPUSCULAR VOLUME 82 fL (79-100); MONO # 0.4 x10^3/uL (0.0-1.1); MONO % 5 % (0-9); NEUT # 4.2 x10^3uL (1.8-7.7); NEUT % 53 % (31-73); PLATELET COUNT 227 x10^3/uL (140-400); RED BLOOD COUNT 3.86 x10^6/uL (3.50-5.40); RED CELL DISTRIBUTION WIDTH 13.7 % (11.5-14.5)
[2018-05-08 07:50] LABS: CALCIUM 8.7 mg/dL (8.5-10.1); CREATININE 0.5 mg/dL (0.6-1.0); GFR 181.9; POTASSIUM 3.6 mmol/L (3.5-5.1)
[2018-05-08 07:52] LABS: BILIRUBIN,URINE NEGATIVE (NEG); CLARITY,URINE CLEAR; COLOR,URINE YELLOW; NITRITE,URINE NEGATIVE (NEG); PH,URINE 6.5; PROTEIN,URINE NEGATIVE (NEG-TRACE); UROBILINOGEN,URINE 0.2 mg/dL (0.2 mg/dL)
[2018-05-08 07:56] LABS: ALBUMIN 3.1 g/dL (3.4-5.0); ALBUMIN/GLOBULIN RATIO 0.9 (1.0-1.7); TOTAL BILIRUBIN 0.2 mg/dL (0.2-1.0); TOTAL PROTEIN 6.5 g/dL (6.4-8.2)
[2018-05-08 08:01] LABS: SQUAMOUS EPITHELIAL CELL,UR MOD /LPF; WBC,URINE OCC /HPF (0-4)
[2018-05-08 08:02] LABS: BACTERIA,URINE FEW /HPF (0-FEW)
[2018-05-08 08:03] LABS: RBC,URINE 0 /HPF (0-2)
[2018-05-08 08:35] VITALS: BP 104/53
--- NOTE | 2018-05-08 09:09 | RAD ---
Examination: Obstetric ultrasound greater than 14 weeks HISTORY: History of vaginal bleeding COMPARISON: 02/20/2018. FINDINGS: The cervix measures 4.2 cm in length. Single living intrauterine identified with heart rate of 144 bpm. LMP measures 01/02/2018. Clinical age 18 weeks and 0 days with expected date of delivery 10/09/2018. Ultrasound age is 17 weeks and 4 days with expected date of delivery by ultrasound 10/12/2018. Estimated weight 193 g. Cephalic index 82.5. Head circumference to abdominal circumference ratio 1.2. Femur length to biparietal diameter 62.7. Femur length to head circumference 16.8. Femur length to abdominal circumference 20.4. The biparietal diameter measures 3.8 cm corresponding to 17 weeks and 5 days. Head circumference measures 14.3 cm corresponding to 17 weeks and 4 days. The abdominal circumference measures 11.8 cm corresponding to 17 weeks and 4 days. Femur length measures 2.4 cm corresponding to 17 weeks and 2 days. Head circumference to abdominal circumference ratio 1.2. movement, cardiac activity, 4 chamber heart seen. 3 vessel CORD seen. Cord insertion, fluid in the bladder, stomach, kidneys, spine, brain are visualized. position is variable. Amniotic fluid is normal. Placental location is posterior wall. IMPRESSION: Single living intrauterine with heart rate of 144 bpm. Electronically signed by: Mitchell Palencia MD (05/08/2018 9:05 AM) [id number]
== END 2018-05-08 08:55 | disposition home or self-care (01) ==
LOC: ER 05:32
DX: O46.92 Antepartum hemorrhage, unspecified, second trimester (principal); F10.20 Alcohol dependence, uncomplicated; Y90.9 Presence of alcohol in blood, level not specified; Z91.018 Allergy to other foods; Z3A.17 17 weeks gestation of pregnancy
CPT/HCPCS: 36415; 76805; 80053; 81001; 84702; 85025; 99284-25

== ENCOUNTER 2018-09-10 09:34 | Observation (INO) | payer OTHER ==
[2018-09-10 10:26] LABS: BILIRUBIN,URINE NEGATIVE (NEG); CLARITY,URINE CLEAR; COLOR,URINE YELLOW; NITRITE,URINE NEGATIVE (NEG); PH,URINE 7.5; PROTEIN,URINE NEGATIVE (NEG-TRACE)
[2018-09-10 10:31] LABS: BARBITURATES NEG (NEG); BENZODIAZEPINES NEG (NEG); CANNABINOIDS POS (NEG); COCAINE NEG (NEG); METHADONE NEG (NEG); OPIATES NEG (NEG); PHENCYCLIDINE NEG (NEG)
[2018-09-10 10:38] LABS: AMPHETAMINE/METHAMPHETAMINE NEG (NEG)
[2018-09-10] MEDS ORDERED: IV RINGERS,LACTATED 1000ML 1,000 ML IV SCH (11:00)
[2018-09-10 11:01] LABS: SQUAMOUS EPITHELIAL CELL,UR MANY /LPF
[2018-09-10 11:02] LABS: BACTERIA,URINE 0 /HPF (0-FEW); RBC,URINE 0 /HPF (0-2); WBC,URINE 0 /HPF (0-4)
[2018-09-10] MEDS ORDERED: hydrOXYzine IM 50 MG/ML VIAL IM ONE (11:30)
== END 2018-09-10 12:05 | disposition home or self-care (01) ==
LOC: 3 SO LND 09:34
PROVIDERS: ADMIT Obstetrics & Gynecology; ATTEND Obstetrics & Gynecology
DX: O62.9 Abnormality of forces of labor, unspecified (principal); O26.893 Other specified pregnancy related conditions, third trimester; F32.9 Major depressive disorder, single episode, unspecified; N89.8 Other specified noninflammatory disorders of vagina; F12.10 Cannabis abuse, uncomplicated; Z3A.34 34 weeks gestation of pregnancy
CPT/HCPCS: 80307; 81001; 96372; G0378; G0379; J3410

== ENCOUNTER 2019-07-27 21:39 | Emergency (ER) | payer MEDICAID, OTHER ==
[~2019-07-27] VITALS: Ht 162.6 cm; Wt 59.0 kg
[~2019-07-27 21:39] MED LIST changes: +POTA20TA4 PO; -POTA20TA82 PO
--- NOTE | 2019-07-27 22:37 | PHYS DOC ---
Past Medical History Past Medical History: Alcoholism, Other Additional Past Medical Histor: PE, Gastritis r/t ETOH Past Surgical History: Other Additional Past Surgical Histo: PLASTIC SX TO FACE Smoking Status: Former Smoker Alcohol Use: Occasionally Drug Use: Marijuana Adult General Chief Complaint Chief Complaint: COUGH HPI HPI 24-year-old female past medical history of "Blood Clots" presents with a chief complaint of chest pain associated with dry cough. Patient states chest pain started 3 days ago has been constant since onset. Associated cough without sputum production as well as shortness of breath. She states during her she was diagnosed with a blood clot was placed on Lovenox-- she states she has not taken Lovenox since March. Review of Systems Review of Systems Constitutional: Denies fever or chills [] Eyes: Denies change in visual acuity, redness, or eye pain [] HENT: Denies nasal congestion or sore throat [] Respiratory: As it of cough-positive shortness of breath Cardiovascular: No additional information not addressed in HPI [positive chest pain] GI: Denies abdominal pain, nausea, vomiting, bloody stools or diarrhea [] : Denies dysuria or hematuria [] Musculoskeletal: Denies back pain or joint pain [] Integument: Denies rash or skin lesions [] Neurologic: Denies headache, focal weakness or sensory changes [] Endocrine: Denies polyuria or polydipsia [] All other systems were reviewed and found to be within normal limits, except as documented in this note. Current Medications Current Medications Current Medications Medications (Trade) Dose Ordered Sig/Syed Start Time Stop Time Status Last Admin Dose Admin Info (CONTRAST GIVEN -- Rx MONITORING) 1 each PRN DAILY PRN 07/27/19 23:30 07/29/19 23:29 Iohexol (Omnipaque 350 Mg/ml) 100 ml 1X ONCE 07/27/19 23:30 07/27/19 23:31 DC 07/27/19 23:47 100 ML Ketorolac Tromethamine (Toradol 30mg Vial) 30 mg 1X ONCE 07/28/19 00:15 07/28/19 00:16 DC 07/28/19 00:31 30 MG Allergies Allergies Allergies Coded Allergies Type Severity Reaction Last Updated Verified banana Allergy Severe Swelling, HIVES 11/21/16 Yes Penicillins Allergy Intermediate Hives 09/10/18 Yes strawberry Allergy Intermediate throat itches 10/01/16 Yes Physical Exam Physical Exam Constitutional: Well developed, well nourished, no acute distress, non-toxic appearance. [] HENT: Normocephalic, atraumatic, bilateral external ears normal, oropharynx moist, no oral exudates, nose normal. [] Eyes: PERRLA, EOMI, conjunctiva normal, no discharge. [] Neck: Normal range of motion, no tenderness, supple, no stridor. [] Cardiovascular:Heart rate regular rhythm, no murmur [] Lungs & Thorax: Bilateral breath sounds clear to auscultation [] Abdomen: Bowel sounds normal, soft, no tenderness, no masses, no pulsatile masses. [] Skin: Warm, dry, no erythema, no rash. [] Back: No tenderness, no CVA tenderness. [] Extremities: No tenderness, no cyanosis, no clubbing, ROM intact, no edema. [] Neurologic: Alert and oriented X 3, normal motor function, normal sensory function, no focal deficits noted. [] Psychologic: Affect normal, judgement normal, mood normal. [] Current Patient Data Vital Signs Vital Signs Date Time Temp Pulse Resp B/P (MAP) Pulse Ox O2 Delivery O2 Flow Rate FiO2 07/27/19 23:35 59 104/62 (76) 99 Room Air 07/27/19 22:00 97.9 16 97.9 Lab Values Laboratory Tests Test 07/27/19 22:12 07/27/19 23:03 POC Urine HCG, Qualitative Hcg negative (Negative) White Blood Count 8.1 x10^3/uL (4.0-11.0) Red Blood Count 4.36 x10^6/uL (3.50-5.40) Hemoglobin 12.1 g/dL (12.0-15.5) Hematocrit 36.1 % (36.0-47.0) Mean Corpuscular Volume 83 fL (79-100) Mean Corpuscular Hemoglobin 28 pg (25-35) Mean Corpuscular Hemoglobin Concent 34 g/dL (31-37) Red Cell Distribution Width 14.0 % (11.5-14.5) Platelet Count 211 x10^3/uL (140-400) Neutrophils (%) (Auto) 31 % (31-73) Lymphocytes (%) (Auto) 58 % (24-48) H Monocytes (%) (Auto) 5 % (0-9) Eosinophils (%) (Auto) 5 % (0-3) H Basophils (%) (Auto) 1 % (0-3) Neutrophils # (Auto) 2.5 x10^3/uL (1.8-7.7) Lymphocytes # (Auto) 4.7 x10^3/uL (1.0-4.8) Monocytes # (Auto) 0.4 x10^3/uL (0.0-1.1) Eosinophils # (Auto) 0.4 x10^3/uL (0.0-0.7) Basophils # (Auto) 0.0 x10^3/uL (0.0-0.2) Segmented Neutrophils % 30 % (35-66) L Lymphocytes % 64 % (24-48) H Monocytes % 2 % (0-10) Eosinophils % 3 % (0-5) Basophils % 1 % (0-3) Platelet Estimate Adequate (ADEQUATE) D-Dimer (Kait) 0.30 ug/mlFEU (0.00-0.50) Sodium Level 137 mmol/L (136-145) Potassium Level 3.7 mmol/L (3.5-5.1) Chloride Level 102 mmol/L (98-107) Carbon Dioxide Level 23 mmol/L (21-32) Anion Gap 12 (6-14) Blood Urea Nitrogen 20 mg/dL (7-20) Creatinine 0.8 mg/dL (0.6-1.0) Estimated GFR (Cockcroft-Gault) 104.9 BUN/Creatinine Ratio 25 (6-20) H Glucose Level 96 mg/dL (70-99) Calcium Level 8.4 mg/dL (8.5-10.1) L Total Bilirubin 0.3 mg/dL (0.2-1.0) Aspartate Amino Transferase (AST) 29 U/L (15-37) Alanine Aminotransferase (ALT) 42 U/L (14-59) Alkaline Phosphatase 54 U/L (46-116) Troponin I Quantitative < 0.017 ng/mL (0.000-0.055) Total Protein 6.1 g/dL (6.4-8.2) L Albumin 3.4 g/dL (3.4-5.0) Albumin/Globulin Ratio 1.3 (1.0-1.7) Laboratory Tests 07/27/19 23:03 Laboratory Tests 07/27/19 23:03 EKG EKG [] Interpretation Time: EKG 0051 HRS heart rate [address] elevation no ST depression no acute OK Radiology/Procedures Radiology/Procedures [] Course & Med Decision Making Course & Med Decision Making Pertinent Labs and Imaging studies reviewed. (See chart for details) []She was evaluated for chief complaint. Workup consisted of laboratory analysis radiologic imaging and EKG. Results reviewed and discussed with Patient D-dimer negative, Troponin negative, CT angio chest no acute abnormality. She will be discharged home. Dragon Disclaimer Dragon Disclaimer This electronic medical record was generated, in whole or in part, using a voice recognition dictation system. Departure Departure Impression: Primary Impression: Pleurisy Disposition: HOME, SELF-CARE Condition: STABLE Referrals: NO PCP (PCP) Patient Instructions: Pleurisy Scripts Methylprednisolone (MEDROL) 4 Mg Tab.ds.pk 1 PKG PO UD, #1 PKG Prov: KENZIE HALLMAN DO 07/28/19 Guaifenesin/Codeine Phosphate (Codeine-Guaifen 10-100 mg/5 ml) 120 Ml Liquid 10-May ML PO PRN Q4HRS PRN for cough and congestion MDD 60 Milliliter(s) for 4 Days, #120 ML 0 Refills Prov: KENZIE HALLMAN DO 07/28/19 KENZIE HALLMAN DO Jul 27, 2019 22:37
[2019-07-27 23:14] LABS: BASO % 1 % (0-3); EOS # 0.4 x10^3/uL (0.0-0.7); EOS % 5 % (0-3); HEMATOCRIT 36.1 % (36.0-47.0); HEMOGLOBIN 12.1 g/dL (12.0-15.5); LYMPH # 4.7 x10^3/uL (1.0-4.8); LYMPH % 58 % (24-48); MEAN CORPUSCULAR HEMOGLOBIN 28 pg (25-35); MEAN CORPUSCULAR HGB CONC 34 g/dL (31-37); MEAN CORPUSCULAR VOLUME 83 fL (79-100); MONO # 0.4 x10^3/uL (0.0-1.1); MONO % 5 % (0-9); NEUT # 2.5 x10^3/uL (1.8-7.7); NEUT % 31 % (31-73); PLATELET COUNT 211 x10^3/uL (140-400); RED BLOOD COUNT 4.36 x10^6/uL (3.50-5.40); WHITE BLOOD COUNT 8.1 x10^3/uL (4.0-11.0)
[2019-07-27 23:26] LABS: CALCIUM 8.4 mg/dL (8.5-10.1); CREATININE 0.8 mg/dL (0.6-1.0); GFR 104.9; POTASSIUM 3.7 mmol/L (3.5-5.1)
[2019-07-27] MEDS: KETOROLAC 30 MG/ML VIAL. IVP ONE (23:27)
[2019-07-27] MEDS ORDERED: CONTRAST GIVEN. MC PRN (23:30)
[2019-07-27 23:31] LABS: ALBUMIN 3.4 g/dL (3.4-5.0); ALBUMIN/GLOBULIN RATIO 1.3 (1.0-1.7); TOTAL BILIRUBIN 0.3 mg/dL (0.2-1.0); TOTAL PROTEIN 6.1 g/dL (6.4-8.2)
[2019-07-27 23:38] LABS: % BASOS 1 % (0-3); % EOS 3 % (0-5); % LYMPHS 64 % (24-48); % MONOS 2 % (0-10); % SEGS 30 % (35-66)
[2019-07-27 23:39] LABS: PLT ESTIMATE ADEQUATE (ADEQUATE)
[2019-07-27] MEDS: IOHEXOL 350 MG/ML 100 ML VIAL. IV ONE (23:47)
--- NOTE | 2019-07-28 00:03 | RAD ---
EXAM: CT chest with contrast - pulmonary embolus protocol CLINICAL HISTORY: chest pain sob PE. COMPARISON: 12/15/2017 TECHNIQUE: CT of the chest following the administration of intravenous contrast during the pulmonary arterial phase. Axial, coronal and sagittal reformatted images were generated including MIP images. ---PQRS compliance statement - One or more of the following individualized dose reduction techniques were utilized for this study: 1. Automated exposure control 2. Adjustment of the mA and/or kV according to patient size 3. Use of iterative reconstruction technique--- FINDINGS: CHEST: Diagnostic quality: Adequate. Pulmonary emboli: None seen Right heart strain: None Pulmonary arteries: Normal in caliber. Heart is mildly enlarged. No pericardial effusion. No pleural effusion or pneumothorax. Bilateral thyroid lobes are enlarged, resulting in mild narrowing of the trachea. No evidence for acute pulmonary embolus. 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 No mediastinal or hilar lymphadenopathy. No axillary lymphadenopathy. Visualized Upper abdomen: Unremarkable Bones: Degenerative changes of spine are seen. No aggressive osseous lesions IMPRESSION: No evidence for acute pulmonary embolus. Thyroid is apparently enlarged with mild tracheal narrowing. Electronically signed by: Pavan Villasenor MD (07/28/2019 12:00 AM) [id number]
[2019-07-28] MEDS: KETOROLAC 30 MG/ML VIAL. IVP ONE (00:31)
[2019-07-28] MEDS ORDERED: METH4TAB2 PO (00:58)
[2019-07-28] MEDS ORDERED: GUAI120L35 PO (00:58)
[2019-07-28 01:05] VITALS: BP 89/54
--- NOTE | 2019-07-28 04:24 | EKG ---
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
== END 2019-07-28 01:08 | disposition home or self-care (01) ==
LOC: ER 21:39
DX: R09.1 Pleurisy (principal); Z87.891 Personal history of nicotine dependence; Z88.0 Allergy status to penicillin; Z91.018 Allergy to other foods
CPT/HCPCS: 36415; 71275; 80053; 81025; 84484; 85007; 85025; 85379; 93005; 96374; 96376; 99285; J1885; Q9967; 99284